=== PATIENT | female | born 1945 | race Caucasian/White ===

== ENCOUNTER 2018-04-18 09:13 | Outpatient (CLI) | payer MEDICARE ==
--- NOTE | 2018-04-18 13:24 | MMO ---
BILATERAL SCREENING MAMMOGRAM: Date: 04/18/18 INDICATION: Annual examination; baseline exam. COMPARISON: None. FINDINGS: Interpretation of this exam was assisted with computer-aided detection. There are scattered fibroglandular elements bilaterally. There are vascular benign-appearing calcifications bilaterally. There is a prominent mass seen within the right breast, 9 o'clock region, anterior depth, measuring 3 .3 cm. There are otherwise benign-appearing scattered densities within the right and left breast. IMPRESSION: BIRADS 0: Incomplete: Need Additional Imaging Evaluation and/or Prior Mammograms for Comparison 3.3 cm mass seen within the right breast 9 o'clock position, anterior depth, requires further evaluat ion. Diagnostic mammographic evaluation and ultrasound evaluation likely necessary for further charac terization. The facility will notify patient of need for additional imaging services. POS: OBI
== END 2018-04-18 09:14 | disposition home or self-care (01) ==
LOC: SCSMAMMO 09:13
PROVIDERS: ATTEND Family Medicine
DX: Z12.31 Encounter for screening mammogram for malignant neoplasm of breast (principal); N63.10 Unspecified lump in the right breast, unspecified quadrant
CPT/HCPCS: 77067

== ENCOUNTER 2018-04-25 09:24 | Outpatient (CLI) | payer MEDICARE | END 2018-04-25 09:25 | disposition home or self-care (01) | LOC: BICMAMMO 09:24 | PROVIDERS: ATTEND Family Medicine | DX: N63.10 Unspecified lump in the right breast, unspecified quadrant (principal); Z80.3 Family history of malignant neoplasm of breast | CPT/HCPCS: 76642; 77065; G0279 ==

== ENCOUNTER → 2018-05-15 | Day surgery (SDC) | payer MEDICARE | LOC: BICULT 12:06 | PROVIDERS: ATTEND Family Medicine | PROC: 0HBT3ZX Excision of Right Breast, Percutaneous Approach, Diagnostic (ICD-10-PCS; principal; 2018-05-15) | DX: D24.1 Benign neoplasm of right breast (principal) | CPT/HCPCS: 19083; 88305; 88341; 88342 ==

== ENCOUNTER 2018-12-21 14:10 | Inpatient (IN) | payer MEDICARE ==
--- NOTE | 2018-12-21 14:17 | PDOC.FPRHP ---
- History of Present Illness Chief Complaint: Anemia History of Present Illness: 73 yo F with PMH of DM2, HTN, and anemia presents from Dr. Bartlett (PCP) clinic as a direct admit for low Hgb on 4.9. She reports it was found on routine bloodwork, and that she has chronic anemia. Patient denies any symptoms , no headache, no weakness or dizziness, no vision changes, no SOB or chest pain. Denies n/v, diarrhea/constipation, blood in stools/urine. She does report urinary urgency and leakage at night time for the past 6 months. She reports she takes aleve occasionally at home for knee osteoarthritis. Reports she has had swelling in her legs for about the past year. She does report a recent episode of sores on the inside of her mouth and her lips about a week ago as well as a "scratchy throat" that is now resolved. - Allergies/Adverse Reactions Allergies Allergy/AdvReac Type Severity Reaction Status Date / Time No Known Allergies Allergy Verified 12/21/18 15:04 - Home Medications Medication Instructions Recorded Confirmed Type Amlodipine [Norvasc] 1 tab PO HS 12/21/18 12/21/18 History Aspirin [Aspir-Low] 1 tab PO DAILY 12/21/18 12/21/18 History Glimepiride [Amaryl] 1 tab PO BID 12/21/18 12/21/18 History Hydrochlorothiazide 1 tab PO DAILY 12/21/18 12/21/18 History Metoprolol Tartrate [Lopressor] 1 tab PO DAILY 12/21/18 12/21/18 History Simvastatin 1 tab PO HS 12/21/18 12/21/18 History metFORMIN [Glucophage] 1 tab PO BID 12/21/18 12/21/18 History - History PMHx: DM2, HTN, anemia, Vit B12 deficiency, Rt breast mass removed- benign PSHx: Rt breast mass surgery, cholecystectomy FHx: denies cardiac; breast cancer in mother at age 77 Social: Denies t/a/d use e - Review of Systems General: denies: fever/chills, weight/appetite/sleep changes Eyes: denies: eye pain, vision changes ENT: denies: nasal congestion, rhinorrhea Respiratory: denies: cough, congestion, shortness of breath Cardiovascular: reports: edema. denies: chest pain, palpitation Gastrointestinal: denies: nausea, vomiting, diarrhea, constipation, abdominal pain, GI bleeding Genitourinary: reports: incontinence. denies: dysuria, polyuria Skin: denies: rashes, lesions Musculoskeletal: reports: swelling, arthritis/arthralgias. denies: pain Neurological: denies: numbness, weakness Psychological: denies: anxiety, depression - Vital signs BP: 187/66 HR: 92 RR: 18 Tmax: 98.5 Pox: 99 % on RA Wt: 77.1 kg - Physical Exam Constitutional: NAD, awake, alert and oriented HEENT: normocephalic and atraumatic, PERRLA, EOMI, conjunctiva clear, grossly normal vision, oropharynx clear, other (MM dry, sclera white) Neck: supple, no LAD, no thyromegaly, no bruits Heart: RRR, normal S1/S2 (systolic murmur present, no radiation to carotids), pulses present, other (2+ edema up to knees bilat) Lungs: CTAB, no respiratory distress, good air movement, no wheezing Abdomen: soft, non-tender, bowel sounds present, no masses/distention Musculoskeletal: normal structure, normal tone, ROM grossly normal Neurological: CN II-XII intact Skin: no rash/lesions, good turgor, capillary refill <2 seconds Heme/Lymphatic: no unusual bruising or bleeding, no purpura Psychiatric: normal mood and affect, good judgment and insight, intact recent and remote memory FMR H&P: A/P - Problem List (1) Acute on chronic anemia Current Visit: Yes Status: Acute Code(s): D64.9 - ANEMIA, UNSPECIFIED (2) DM2 (diabetes mellitus, type 2) Current Visit: Yes Status: Chronic (3) HTN (hypertension) Current Visit: Yes Status: Chronic Code(s): I10 - ESSENTIAL (PRIMARY) HYPERTENSION (4) Vitamin B12 deficiency anemia Current Visit: Yes Status: Chronic Code(s): D51.9 - VITAMIN B12 DEFICIENCY ANEMIA, UNSPECIFIED - Plan Acute on Chronic Anemia -Hgb 4.9, asymptomatic; labwork from clinic shows iron deficiency anemia, hx of B12 deficiency per chart review. TTG pending -transfuse 2 units PRBCs, 40 mg IV lasix after each, recheck H/H post transfusion -Occult blood pending -GI consulted for possible colonoscopy/EGD, Dr. Adamson, appreciate recommendations -Hold home aleve -NPO @ midnight CHF Pt denies, but is on Lasix. Lungs clear on physical Exam, new 2/6 systolic murmur present - BNP elevated at 300 - Echo pending - Strict I/Os, daily weights DM2 - Home medications - recent A1C of 5.4 on 12/19/18 HTN -Home medications Osteoarthritis -hold home aleve Diet: HH, CC, NPO @ midnight DVT ppx: SCDs GI ppx: protonix PCP: Tri FMR H&P: Upper Level - Pertinent history 73F here as a direct admit from Dr. Bartlett's clinic for profound anemia. She endorses being completely asymptomatic. She was surprised at the results of her CBC this week. She denies lightheadedness, vertigo, SOB, THOMPSON, chest pain, claudication, n/v/d. She has a PMH of II, HTN, HLD, and BLE edema. Her diabetes has been well controlled on metformin and glimeperide with a recent A1C of 5.4 on 12/19/18. She denies any hx of CHF, but is on lasix 40mg daily. She denies using any NSAIDS. No history of melena, hematochezia, hematemesis. No recent surgeries or blood loss. She feels as though she is at her normal level of activity. - Pertinent findings 187/66 mmHg 98.5F 92 bpm 18 RR 99% on RA Gen: A&Ox3 CV: RRR; no murmur Pulm: CTA-B Abd: soft; nontender; non distended Ext: 1+ non-pitting edema to knees Lab values from 08/10/2018: WBC: 8.3 H/H: 7.3/25.4 MCV: 66 Plt: 422 Ferritin: 5.44 Iron: 17 TIBC: 516 B12: 455 Folate: 8.9 TSH: 1.52 BUN/Cr: - Plan Date/Time: 12/21/18 1417 IIrwin, have evaluated this patient and agree with findings/plan as outlined by internet network specialist resident. Pertinent changes/additions are listed here. Iron Deficiency anemia: we will have her most recent labwork from this week faxed to the floor. From the records on hand, it appears the patient has a profound iron deficiency, but denies any chronic blood loss. Will order a peripheral smear and set her up for a GI work up, FOBT included. Will need to r/ o celiac disease, atrophic gastritis, and h. pylori. Lab results not consistent with AOCD and she has mild CKD. Thyroid studies are appropriate. Will transfuse two units and start on oral iron.
[2018-12-21 14:51] VITALS: BMI 28.3
[2018-12-21] MEDS ORDERED: Ondansetron ODT 4 MG TAB PO PRN (15:35)
[2018-12-21] MEDS ORDERED: Acetaminophen 325 MG TAB PO PRN (15:35)
[2018-12-21] MEDS ORDERED: Furosemide 20 MG/2 ML VIAL IVP SCH (15:45)
[2018-12-21] MEDS ORDERED: Furosemide 40 MG/4 ML VIAL IVP SCH (15:45)
[2018-12-21] MEDS: Amlodipine 10 MG TAB PO SCH (20:52)
[2018-12-21] MEDS: Simvastatin 20 MG TAB PO SCH (20:53)
[2018-12-21 20:54] LABS: Hemoglobin 5.7 g/dL (12.0-16.0)
[2018-12-21] MEDS: metFORMIN 500 MG TAB PO SCH (20:54)
[2018-12-21] MEDS: Glimepiride 2 MG TAB PO SCH (20:54)
[2018-12-21] MEDS ORDERED: hydrALAZINE 20 MG/ML VIAL SLOW IVP PRN (21:02)
[2018-12-21] MEDS ORDERED: Furosemide 40 MG/4 ML VIAL SLOW IVP SCH (22:00)
--- NOTE | 2018-12-21 22:49 | HP ---
HISTORY OF PRESENT ILLNESS: I have examined the patient. I have discussed the case with Dr. Tello and agree with her history and physical exam. Briefly, Ms. Jimenez is a very pleasant feisty 73-year-old white female patient, who was admitted from an outlying private physician Dr. Bartlett for anemia of 4.6. Evidently, she has been progressively developing anemia slowly since a breast biopsy in January of last year. Iron studies done in August were consistent with iron deficiency anemia with a low ferritin, low MCV. She has been admitted for transfusion and further workup. She has absolutely no complaints. She does not feel weak or dizzy. She has no GI complaints, but states that she does take a pill for "arthritis." She does not recall the name. She denies any melena, coffee-grounds emesis, or hematochezia. PHYSICAL EXAMINATION: VITAL SIGNS: Blood pressure is 180/60. She is afebrile. Her pulse rate is 90, her respirations are 18, her room air oxygen saturation is 99%. GENERAL: She is completely awake, oriented x3. Very pleasant and in absolutely no distress. EAR, NOSE, AND THROAT: No erythema or exudate. NECK: Supple. CARDIAC: Heart rhythm regular. No gallop or murmur noted. LUNGS: Clear. No rales or wheezes. ABDOMEN: Flat, benign, soft. No guarding, rebound, or rigidity. EXTREMITIES: Trace edema. No focal deficits neurologically. LABORATORY DATA: Much lab is still pending, but that available from her private physician was consistent with iron deficiency anemia. ASSESSMENT: 1. Iron deficiency anemia. 2. Type 2 diabetes. PLAN: Admit. Transfuse. Obtain GI workup and proceed. Job ID: [id number]
--- NOTE | 2018-12-22 00:24 | CON ---
DATE OF CONSULTATION: 12/21/2018 REASON FOR CONSULTATION: Iron deficiency anemia. HISTORY OF PRESENT ILLNESS: Suellen Jimenez is a very pleasant 73-year-old woman who was admitted to the hospital today as a direct admit from Dr. Bartlett's office with severe iron deficiency anemia. Ms. Jimenez has never undergone EGD or colonoscopy. She is not on any particular diet that would restrict iron. She has no prior history of gastrointestinal illness. She denies any primary gastrointestinal symptoms such as nausea or vomiting, diarrhea, constipation, abdominal pain, melena, or hematochezia. She denies any overt bleeding from anywhere. There is no epistaxis. No hematemesis. No gross hematuria. No visible blood in the stool. Looking back at her labs, it appears that hemoglobin was 10.8 back in June 2017 with normal MCV at that time, but ever since that time, she has had a slow decline in hemoglobin as well as development of microcytosis. In August 2018, hemoglobin was down to 7.3 with MCV 66. Today, she presents with hemoglobin of 4.4 and MCV is down to 54.4, platelets are normal. BUN is normal. Iron studies from last August showed iron deficiency with ferritin only 5.4, iron 17, TIBC 516, only 3% saturation. Note that vitamin B12 and folic acid levels as well as TSH were normal at that time. The patient herself is actually very minimally symptomatic for such a significant degree of anemia. She denies any shortness of breath. She is getting 2 units of RBCs now. She has no complaints at this time. She did just finish a large dinner with some meat, sweet potatoes, and peas. REVIEW OF SYSTEMS: Full review of systems including constitutional, head, eyes, ears, nose, throat, GI, , cardiovascular, respiratory, musculoskeletal, neurologic systems is negative except as noted in the HPI. PAST MEDICAL HISTORY: 1. Diabetes type 2. 2. Hypertension. 3. Microcytic anemia. 4. Vitamin B12 deficiency, though normal B12 levels in August 2018. 5. Iron deficiency. 6. Right breast mass removed, benign. 7. Cholecystectomy. ALLERGIES: NO KNOWN DRUG ALLERGIES. OUTPATIENT MEDICATIONS: 1. Norvasc. 2. Aspirin. 3. Glimepiride. 4. Hydrochlorothiazide. 5. Metoprolol. 6. Simvastatin. 7. Metformin. FAMILY HISTORY: Her mother had breast cancer. No family history of GI malignancy. SOCIAL HISTORY: No tobacco, alcohol, or drug use. She has good family support. PHYSICAL EXAMINATION: VITAL SIGNS: Temperature 98.5, pulse 92, blood pressure 187/66, and 99% oxygen saturation on room air. GENERAL: A 73-year-old woman sitting up on the edge of the bed comfortably, in no distress. SKIN: She is a bit pale. No jaundice. No rashes are palpable. EYES: No scleral icterus. Extraocular movements intact. ENT: Mucous membranes moist. No oral lesions. LYMPH: No submandibular or supraclavicular lymphadenopathy. Thyroid nontender to palpation. HEART: Regular rate and rhythm. LUNGS: Clear to auscultation bilaterally. ABDOMEN: Bowel sounds present. Soft, nontender to palpation throughout. No masses or organomegaly appreciated. EXTREMITIES: No peripheral edema. VESSELS: Radial pulses 2+ bilaterally NEUROLOGIC: Cranial nerves 2 through 12 intact bilaterally. No focal deficits. LABORATORY STUDIES: Hemoglobin is 4.4, MCV 54.4, WBC 5.1, platelets 321. Sodium 138, potassium 4.0, BUN 19, creatinine 1.19. Hemoglobin A1c only 5.4. LFTs all normal with total bilirubin 0.5, alkaline phosphatase 101, AST 16, ALT 19, and albumin 3.7. BNP is 306.1. TSH 152.9. From August 2018, vitamin B12 and folic acid levels were normal, but ferritin was low at 5.44, iron 17, TIBC 516, only 3% saturation. ASSESSMENT AND PLAN: Iron deficiency anemia, severe. It appears that this iron deficiency has been developing over the past year to year and a half, in the absence of any overt bleeding or primary gastrointestinal symptoms. We discussed the differential for iron deficiency anemia. The most likely cause would be occult gastrointestinal bleeding lesion. This certainly needs further evaluation. We will plan for diagnostic EGD and colonoscopy with plan for duodenal biopsies to rule out celiac disease. She just finished her dinner, so we will not proceed with bowel preparation this evening. Rather, we will have her on a clear liquid diet tomorrow, administer bowel preparation tomorrow evening, and plan for the procedure on Tuesday. The patient understands and is in agreement with the plan. Otherwise, I agree with the plan to transfuse this evening. Thank you for the consultation. Please call anytime with questions or concerns. Job ID: [id number]
[2018-12-22 05:38] LABS: INR-International Normal Ratio 1.1; Prothrombin Time 14.1 SEC (12.0-14.7)
[2018-12-22 06:14] LABS: #Eosinphils 0.1 thou/uL (0.0-0.7); #Lymphocytes 1.7 thou/uL (1.20-3.40); #Monocytes 0.5 thou/uL (0.11-0.59); #Neutrophils 4.1 thou/uL (1.40-6.50); %Basophils 0.7 % (0.0-1.0); %Eosinophils 1.8 % (0.0-10.0); %Lymphocytes 26.2 % (21.0-51.0); %Monocytes 7.3 % (0.0-10.0); Anisocytosis MODERATE=16-30 cells (100X) (0-5/hpf); Elliptocytes MODERATE= 6-15 cells (100X) (0-1/hpf); Hemoglobin 6.8 g/dL (12.0-16.0); Hypochromia MODERATE=16-30 cells (100X) (0-5/hpf); MDiff Complete? YES; Mean Corpuscular HGB CONC 28.6 g/dL (32.0-36.0); Mean Corpuscular Volume 62.7 fL (78.0-98.0); Mean Platelet Volume 5.2 fL (7.4-10.4); Platelet Count 291 thou/uL (130-400); Red Blood Cell (RBC) Count 3.76 mill/uL (4.20-5.40); Tear Drops SLIGHT = 2-5 cells (100X) (0-1/hpf); White Blood Cell (WBC) Count 6.4 thou/uL (4.8-10.8)
--- NOTE | 2018-12-22 06:52 | PDOC.FM ---
- Subjective Subjective: Pt feels well this AM, does not feel differently than yesterday. Reports no CP or SOB. - Objective Vital Signs & Weight: Vital Signs (12 hours) Temp Pulse Pulse Resp BP BP BP 12/22/18 04:00 98.2 F 73 18 162/66 H 12/22/18 00:16 98.7 F 78 78 18 157/70 H 157/70 H 12/21/18 21:51 97.9 F 76 18 177/69 H 12/21/18 21:35 97.8 F 75 18 170/67 H 12/21/18 20:52 86 185/70 H 12/21/18 19:38 98.6 F 86 18 12/21/18 19:35 98.1 F 86 18 185/70 H BP Pulse Ox 12/22/18 04:00 94 L 12/22/18 00:16 96 12/21/18 21:51 95 12/21/18 21:35 97 12/21/18 20:52 12/21/18 19:38 185/70 H 98 12/21/18 19:35 98 Weight Weight 77.111 kg I&O: 12/20/18 12/21/18 12/22/18 06:59 06:59 06:59 Intake Total 1544 Balance 1544 Result Diagrams: 12/22/18 05:21 Phys Exam - Physical Examination Constitutional: NAD Appears less pale than yesterday Neck: no nodes, supple Respiratory: no wheezing, no rales Cardiovascular: RRR 2/6 systolic murmur Gastrointestinal: soft, non-tender 3+ pitting edema to level of knees Neurological: non-focal, moves all 4 limbs Psychiatric: normal affect, A&O x 3 Skin: normal turgor, cap refill <2 seconds Dx/Plan (1) Acute on chronic anemia Code(s): D64.9 - ANEMIA, UNSPECIFIED Status: Acute (2) DM2 (diabetes mellitus, type 2) Status: Chronic (3) HTN (hypertension) Code(s): I10 - ESSENTIAL (PRIMARY) HYPERTENSION Status: Chronic (4) Vitamin B12 deficiency anemia Code(s): D51.9 - VITAMIN B12 DEFICIENCY ANEMIA, UNSPECIFIED Status: Chronic - Plan Plan: Acute on Chronic Anemia -Hgb 4.9, asymptomatic; labwork from clinic shows iron deficiency anemia, hx of B12 deficiency per chart review. TTG pending -transfuse 2 units PRBCs, 40 mg IV lasix after each, recheck H/H post transfusion -Occult blood pending -GI consulted for possible colonoscopy/EGD, Dr. Adamson, appreciate recommendations -Clear liquids, bowel prep this evening -Hold home aleve -Consider iron infusion today CHF Pt denies, but is on Lasix. Lungs clear on physical Exam, new 2/6 systolic murmur present - BNP elevated at 300 - Echo pending, EKG NSR - Strict I/Os, daily weights DM2 - Home medications - recent A1C of 5.4 on 12/19/18 HTN -Home medications Osteoarthritis -hold home aleve Diet: HH, CC, NPO @ midnight DVT ppx: SCDs GI ppx: protonix PCP: Tri
[2018-12-22] MEDS: Hydrochlorothiazide 25 MG TAB PO SCH (08:49)
[2018-12-22] MEDS: Aspirin 81 mg Enteric Coated Tablet PO SCH (08:49)
[2018-12-22] MEDS: Glimepiride 2 MG TAB PO SCH ×2 (08:50→21:20)
[2018-12-22] MEDS: metFORMIN 500 MG TAB PO SCH ×2 (08:50→21:20)
[2018-12-22] MEDS: Metoprolol Tartrate 50 MG TAB PO SCH (08:50)
[2018-12-22] MEDS ORDERED: Prevnar 13-Val Conj/PF 0.5 ML SYRINGE IM ONE (09:00)
[2018-12-22] MEDS ORDERED: GoLYTELY 4,000 ml Bottle PO SCH (09:15)
[2018-12-22 09:48] LABS: Anion Gap 17 mmol/L (10-20); BUN (Urea Nitrogen) 19 mg/dL (9.8-20.1); Calc. Creatinine Clearance 49 mL/min (70-130); Calcium 9.6 mg/dL (7.8-10.44); Carbon Dioxide 23 mmol/L (23-31); Chloride 103 mmol/L (98-107); Estimated GFR-MDRD 42; Glucose 174 mg/dL (83-110); Potassium 3.1 mmol/L (3.5-5.1); Sodium 140 mmol/L (136-145)
--- NOTE | 2018-12-22 09:48 | PRG ---
DATE OF SERVICE: 12/22/2018 SUBJECTIVE: Ms. Jimenez is doing fine. She feels a bit better after blood transfusion. Hemoglobin came up to 6.8 with 2 units transfused yesterday. She has no other complaints. OBJECTIVE: VITAL SIGNS: Temperature 98.3, pulse 94, blood pressure 170/71, and 94% oxygen saturation on room air. GENERAL: No acute distress. HEART: Regular rate and rhythm. LUNGS: Clear to auscultation bilaterally. ABDOMEN: Soft, nontender to palpation. EXTREMITIES: 2+ bilateral lower extremity edema. LABORATORY STUDIES: Hemoglobin up to 6.8, WBC 6.4, platelets 291. INR is 1.1, glucose 80. ASSESSMENT AND PLAN: Iron deficiency anemia, with no overt gastrointestinal bleeding. We will stick with the plan to administer bowel preparation this evening after clear liquid diet today, and perform EGD and colonoscopy tomorrow morning. We will plan to obtain duodenal biopsies during EGD to rule out celiac disease. The patient is wanting to be discharged from the hospital following the procedure. I discussed with her that would really depend upon the findings, and if there were any findings that required continued hospitalization. Job ID: [id number]
[2018-12-22] MEDS ORDERED: HumaLOG 300 UNITS/3 ML VIAL SC PRN (11:34)
[2018-12-22] MEDS ORDERED: Dextrose 5% in Water 1,000 ML IV PRN (11:34)
[2018-12-22] MEDS ORDERED: Dextrose 50% Abboject 50 ML SYRINGE IVP PRN (11:34)
[2018-12-22] MEDS ORDERED: Iron, Sodium Ferric Gluconate 250 MG in Sodium Chloride 0.9% 100 ML IVPB SCH (12:00)
--- NOTE | 2018-12-22 12:02 | PRG ---
DATE OF SERVICE: 12/22/2018 SUBJECTIVE: Ms. Jimenez is sitting in bed, in no distress and she is in her usual cheerful self. Today, she is to undergo EGD and colonoscopy. She will receive an iron transfusion. She has already received a transfusion. Afterward, she can likely be discharged for close followup as an outpatient in an attempt to get her hemoglobin back up to about 13 to 14 and her ferritin to at least 50. Job ID: [id number]
--- NOTE | 2018-12-22 16:15 | EKG ---
Test Reason : Blood Pressure : / mmHG Vent. Rate : 095 BPM Atrial Rate : 095 BPM P-R Int : 180 ms QRS Dur : 084 ms QT Int : 356 ms P-R-T Axes : 060 -14 065 degrees QTc Int : 447 ms Normal sinus rhythm Minimal voltage criteria for LVH, may be normal variant Cannot rule out Anterior infarct , age undetermined Abnormal ECG No previous ECGs available Confirmed by DR. Christiano UGARTE ([id number]) on 12/22/2018 4:15:22 PM Referred By: KARLEE Confirmed By:DR. Christiano UGARTE
[2018-12-22 16:29] LABS: EliA Celiac New Method **** NEW METHOD ****; t-Transglutaminase (tTG) IgA 0.2 EliAU/mL (<7 Negative); t-Transglutaminase (tTG) IgG Less than 0.6 EliAU/mL (<7 Negative)
[2018-12-22] MEDS: Amlodipine 10 MG TAB PO SCH (21:17)
[2018-12-22] MEDS: Simvastatin 20 MG TAB PO SCH (21:19)
--- NOTE | 2018-12-23 06:10 | PDOC.FM ---
- Subjective Subjective: Patient feels well this morning, with no complaints. Patient is wondering how long her procedure will take. States that her bowels have been becoming more clear. - Objective Vital Signs & Weight: Vital Signs (12 hours) Temp Pulse Resp BP BP Pulse Ox 12/23/18 04:54 98.1 F 87 18 161/73 H 94 L 12/23/18 00:40 97.8 F 74 18 159/69 H 95 12/22/18 21:17 89 149/74 H 12/22/18 20:00 96 12/22/18 19:26 98.1 F 89 18 149/74 H 96 Weight Weight 77.111 kg I&O: 12/21/18 12/22/18 12/23/18 06:59 06:59 06:59 Intake Total 3844 2620 Balance 3844 2620 Result Diagrams: 12/23/18 06:01 12/23/18 06:01 Phys Exam - Physical Examination Constitutional: NAD HEENT: PERRLA, moist MMs Respiratory: no wheezing, clear to auscultation bilateral Cardiovascular: RRR, no significant murmur Gastrointestinal: soft, non-tender, no distention, positive bowel sounds 3+ pitting edema BLE Neurological: non-focal, moves all 4 limbs Psychiatric: normal affect Skin: normal turgor, cap refill <2 seconds Dx/Plan (1) Acute on chronic anemia Code(s): D64.9 - ANEMIA, UNSPECIFIED Status: Acute (2) DM2 (diabetes mellitus, type 2) Status: Chronic (3) HTN (hypertension) Code(s): I10 - ESSENTIAL (PRIMARY) HYPERTENSION Status: Chronic (4) Vitamin B12 deficiency anemia Code(s): D51.9 - VITAMIN B12 DEFICIENCY ANEMIA, UNSPECIFIED Status: Chronic - Plan Plan: Acute on Chronic Anemia -Hgb 4.9, asymptomatic; labwork from clinic shows iron deficiency anemia, hx of B12 deficiency per chart review. TTG negative for celiac -transfused 2 units PRBCs -Fe infusion yesterday - H/H improved to 7.0 -Occult blood positive -GI consulted, Dr. Adamson, appreciate recommendations -Clear liquids, bowel prep yesterday, NPO @ midnight -Colonoscopy/EGD today -Hold home aleve Elevated BNP, likely 2/2 demand due to profound anemia Pt denies hx CHF. Pitting Edema in bilat LE. Lungs clear on physical Exam New 2/6 systolic murmur present, possibly flow murmur - BNP elevated at 300, possibly demand ischemia from profound anemia - Echo showed mild mitral and tricuspid regurge, EF 55-60%, E/A reversal suggestive of diastolic dysfunction - EKG NSR - Strict I/Os, daily weights DM2 - Home medications - recent A1C of 5.4 on 12/19/18 HTN -Home medications Osteoarthritis -hold home aleve Hypokalemia - K of 3.0 - Potassium today after procedure, with lunch - May have worsened in part due to bowel prep, will most likely continue to improve with normal diet after procedure Dispo: possible discharge today pending results of procedure Diet: HH, CC post-procedure today DVT ppx: SCDs GI ppx: protonix PCP: Tri Addendum - Attending - Attending Attestation Date/Time: 12/23/18 8832 I personally evaluated the patient and discussed the management with Dr. Tello. I agree with the History, Examination, Assessment and Plan documented above with any addition or exceptions noted below. Patient reports no issues this AM. Reports feeling much better s/p 2units of PRBCs and iron infusion. She is going for EGD and Colonoscopy today. Further mgmt per those results but possible discharge if nothing acute noted.
[2018-12-23 06:42] LABS: Anion Gap 11 mmol/L (10-20); BUN (Urea Nitrogen) 15 mg/dL (9.8-20.1); Calc. Creatinine Clearance 62 mL/min (70-130); Calcium 8.9 mg/dL (7.8-10.44); Carbon Dioxide 27 mmol/L (23-31); Chloride 104 mmol/L (98-107); Estimated GFR-MDRD 55; Glucose 67 mg/dL (83-110); Sodium 139 mmol/L (136-145)
[2018-12-23 06:51] LABS: #Basophils 0.1 thou/uL (0.0-0.2); #Eosinphils 0.2 thou/uL (0.0-0.7); #Monocytes 0.5 thou/uL (0.11-0.59); #Neutrophils 3.8 thou/uL (1.40-6.50); %Basophils 1.3 % (0.0-1.0); %Eosinophils 2.5 % (0.0-10.0); %Lymphocytes 30.3 % (21.0-51.0); %Monocytes 7.3 % (0.0-10.0); %Neutrophils 58.6 % (42.0-75.0); Anisocytosis MODERATE=16-30 cells (100X) (0-5/hpf); Elliptocytes SLIGHT = 2-5 cells (100X) (0-1/hpf); Hypochromia MODERATE=16-30 cells (100X) (0-5/hpf); MDiff Complete? YES; Mean Corpuscular HGB CONC 28.6 g/dL (32.0-36.0); Mean Corpuscular Hemoglobin 17.9 pg (27.0-31.0); Mean Corpuscular Volume 62.3 fL (78.0-98.0); Mean Platelet Volume 5.5 fL (7.4-10.4); Microcytosis MARKED = >30 cells (100X) (0-5/hpf); Platelet Count 307 thou/uL (130-400); Red Blood Cell (RBC) Count 3.92 mill/uL (4.20-5.40); Tear Drops SLIGHT = 2-5 cells (100X) (0-1/hpf); White Blood Cell (WBC) Count 6.4 thou/uL (4.8-10.8)
[2018-12-23] MEDS ORDERED: Fentanyl 100 MCG/2 ML VIAL ONE (07:59)
[2018-12-23] MEDS ORDERED: Potassium Chloride 20 MEQ TAB PO SCH (08:00)
[2018-12-23] MEDS ORDERED: Ondansetron HCl/PF 4 MG/2 ML Vial IVP PRN (08:09)
[2018-12-23] MEDS ORDERED: Promethazine HCl 25 MG/ML VIAL SLOW IVP PRN (08:09)
[2018-12-23] MEDS ORDERED: Promethazine HCl 25 MG/ML VIAL IM PRN (08:09)
--- NOTE | 2018-12-23 09:54 | OP ---
DATE OF PROCEDURE: 12/23/2018 TEAM GUIDE SURGEON: None. PROCEDURES: 1. EGD with biopsies. 2. Colonoscopy with biopsies, submucosal injection, and snare polypectomy. INDICATION: Iron deficiency anemia. MEDICATIONS: See Anesthesia record. FINDINGS: After discussion of the risks, benefits, and alternatives of the procedure, informed consent was obtained and witnessed. Preendoscopic cardiopulmonary examination was satisfactory. Time-out was performed before sedation was achieved. Sedation was achieved with Anesthesia assistance in the endoscopy unit. A Pentax adult upper endoscope was placed into the oropharynx and passed through the cricopharyngeus under direct visualization. The esophageal mucosa appeared normal throughout with a normal-appearing Z-line. The endoscope was advanced into the stomach. Forward and retroflexed views of the entire gastric mucosa were obtained. In the gastric antrum and distal body, there is some mild gastritis with some friability, a few small erosions and some small amount of heme staining. Biopsies were obtained from the gastric antrum and body to rule out H. pylori infection. The endoscope was passed through normal pylorus and into the first and second portions of the duodenum, which appeared normal. Duodenal biopsies were obtained to rule out celiac disease. The upper endoscope was completely withdrawn and the patient was repositioned. Digital rectal exam demonstrated external hemorrhoidal skin tags. A Pentax adult colonoscope was inserted into the anus and passed forward to the cecum in the usual fashion. The cecal base was identified by the appendiceal orifice as well as the ileocecal valve. The terminal ileum was not intubated. The colonoscope was slowly withdrawn in a gradual and circumferential manner with careful examination of the entire colonic mucosa. The quality of the prep was good. In what I estimate to be the proximal transverse colon, at 60 cm from the anal verge, there is a friable mass, this is nonobstructing. It involves about 3/4 of the circumference of the colon. It has a likely malignant appearance. I obtained multiple biopsies from the mass, then I tattooed submucosally just distal to the lesion. In the sigmoid colon, there is a sessile polyp measuring about 1.5 cm in diameter. This was completely removed with hot snare and retrieved for pathology. The remainder of the colonoscopy was normal. The colonoscope was completely withdrawn and the patient allowed to recover. The patient tolerated the procedure well. There were no immediate postprocedure complications. IMPRESSION: 1. Nonobstructing mass in the transverse colon at 60 cm from the anal verge, biopsied, tattooed distal to the lesion. The mass has a likely malignant appearance, and involves 3/4 of the circumference of the colonic lumen. 2. 1.5 cm sigmoid colon polyp, completely removed with hot snare and retrieved for pathology. 3. Mild gastritis, biopsied to rule out Helicobacter pylori. 4. Otherwise normal EGD, with duodenal biopsies obtained. RECOMMENDATIONS: 1. Check CEA level. 2. Surgical consultation. 3. Follow up pathology. 4. CT of the abdomen and pelvis for staging. I. Job ID: [id number]
[2018-12-23] MEDS: metFORMIN 500 MG TAB PO SCH ×2 (10:02→21:18)
[2018-12-23] MEDS: Hydrochlorothiazide 25 MG TAB PO SCH (10:02)
[2018-12-23] MEDS: Metoprolol Tartrate 50 MG TAB PO SCH (10:02)
[2018-12-23] MEDS: Aspirin 81 mg Enteric Coated Tablet PO SCH (10:03)
[2018-12-23] MEDS: Glimepiride 2 MG TAB PO SCH ×2 (10:03→21:17)
[2018-12-23] MEDS ORDERED: ISOVUE-370 76%-LOCM 1 ML ONE (12:53)
[2018-12-23] MEDS ORDERED: PROPOFOL 200 MG/20 ML VIAL ONE (13:57)
[2018-12-23] MEDS ORDERED: Lidocaine 1% PF 5 ML VIAL ONE (13:57)
--- NOTE | 2018-12-23 14:36 | CT ---
CT ABDOMEN AND PELVIS WITH IV CONTRAST: Date: 12/23/18 Multiple axial tomograms obtained through abdomen and pelvis with IV enhancement. INDICATION: Transverse colon mass. CT staging. FINDINGS: Lung bases clear. Images of the liver reveal a 1.7 cm low density lesion in the superior left lobe of the liver along t he margin of the liver. Density is recorded at 16 Hounsfield units. This is an indeterminate lesion. While it could represent a cyst, a metastatic lesion is not excluded. Spleen unremarkable. Pancreas unremarkable. Post cholecystectomy change. Adrenal glands unremarkable. Large cyst posterior right kidney measuring 7.0 cm diameter. Densities are higher than expected, marv ured at 27 Hounsfield units. A 4.4 cm exophytic cyst from the posterior left renal cortex. Numerous o ther low density cystic lesions seen throughout both kidneys which are too numerous to count. A 3.5 c m exophytic cyst extends from the inferior pole of the left kidney and there is suggestion of calcifi cation along its inferior margin. Numerous other cysts are subcentimeter and several range from 1-2 c m size. No hydronephrosis or urinary tract calculus. The urinary bladder is poorly distended, but appears unr emarkable. Small bowel loops normal caliber. Appendix unremarkable. Mild mural thickening at the cecum, which is nonspecific. There is a focal area of luminal narrowing with applecore type appearance in the transverse colon at the hepatic flexure, which would correspond to the known history of colon mass. Aorta normal caliber. No adenopathy identified. Images through the pelvis show that the uterus is unremarkable. There is a 4.0 cm cystic lesion in th e upper right pelvis which appears to represent a right ovarian cyst. No free fluid. There is a super ior end plate deformity involving the L5 vertebra. There is low density involving this vertebral body centrally and to the right of midline, which is nonspecific. Bone scan is suggested given the histor y of malignancy. IMPRESSION: 1. Applecore type lesion in the transverse colon at the hepatic flexure corresponds to known history . 2. There is a focal lesion in the left lobe of the liver which is indeterminate. A metastatic lesion is not excluded. 3. Numerous bilateral renal cystic lesions, some of which are complex as discussed above. Follow-up recommended to confirm stability. 4. 4.0 cm cystic lesion in the upper right pelvis, probably ovarian. 5. Low density area involving the right aspect of the L5 vertebra. Consider further evaluation with bone scan. POS: OBI
[2018-12-23] MEDS: Amlodipine 10 MG TAB PO SCH (21:18)
[2018-12-23] MEDS: Simvastatin 20 MG TAB PO SCH (21:18)
[2018-12-23] MEDS: Neomycin 500 mg Tablet PO SCH ×2 (21:19→23:53)
[2018-12-23] MEDS: Erythromycin Base 250 MG TAB PO SCH ×2 (21:20→23:53)
--- NOTE | 2018-12-24 00:33 | CON ---
DATE OF CONSULTATION: 12/23/2018 CONSULTING PHYSICIAN: Mickey Adamson MD REASON FOR CONSULTATION: Proximal transverse colon mass, suspected colon cancer. HISTORY OF PRESENT ILLNESS: The patient is a very pleasant 73-year-old white female. She has been followed by her primary care physician, Dr. Bartlett, in regard to anemia. She was noted to be anemic in March of 2018 with a hemoglobin of 8.8. This dropped down to 7.3 by August. When she came in for regular screening here on December 19, her hemoglobin was down to 4.7. At that time, he recommended admission to the hospital. She was admitted to the [facility] service and was give a transfusion of 2 units packed red blood cells. Gastroenterology was consulted and Dr. Adamson performed a colonoscopy today revealing a large fungating mass at the proximal transverse colon just distal to the hepatic flexure. Biopsies were obtained and the area was tattooed, but of course, biopsy results are not available yet. The patient's hemoglobin thomas to 7.0 this morning after 2 units of transfusion. She denies any abdominal pain. She has never had a previous colonoscopy. She denies hematochezia or melena. PAST MEDICAL HISTORY: 1. Diabetes. 2. Hypertension. 3. Microcytic anemia. 4. Iron deficiency. 5. Hypercholesterolemia. PAST SURGICAL HISTORY: 1. Right breast biopsy. 2. Cholecystectomy. ALLERGIES: NO KNOWN DRUG ALLERGIES. OUTPATIENT MEDICATIONS: 1. Norvasc. 2. Hydrochlorothiazide. 3. Metoprolol. 4. Glimepiride. 5. Metformin. 6. Simvastatin. 7. Aspirin. PERSONAL AND SOCIAL HISTORY: She is with 3 children. One of her daughters and a sister are present at bedside currently. She does not smoke nor does she drink alcohol. REVIEW OF SYSTEMS: Otherwise unremarkable. FAMILY HISTORY: Noncontributory. PHYSICAL EXAMINATION: VITAL SIGNS: Her temperature is 98.5, pulse is 92, blood pressure 165/64. GENERAL: She is a well-developed, well-nourished, pleasant white female, resting in bed, in no acute distress. She is alert and oriented x3. HEAD, EYES, EARS, NOSE, AND THROAT: Unremarkable. NECK: Supple without mass or tenderness. LUNGS: Clear to auscultation throughout. CARDIAC: Regular rate and rhythm without murmur. ABDOMEN: Soft, nontender, and nondistended with no dominant palpable mass. EXTREMITIES: Unremarkable. LABORATORY DATA: As mentioned, CBC reveals microcytic anemia with an MCV this morning of 62 and a hemoglobin of 7.0, platelet count is normal at 307. Basic metabolic panel reveals hypokalemia with a potassium of 3.0. Her blood sugars ranged between 67 and 325. Her liver function tests at the time of admission were essentially normal. CT scan of her abdomen and pelvis was obtained today. There is a single small lesion in the left lobe of the liver superior aspect near the margin. This is an indeterminate lesion and not definitely metastatic disease. The patient has multiple large cysts associated with her bilateral kidneys. There is suggestion of an ovarian mass in the upper right pelvis. The suspect of malignancy is visualized to the proximal transverse colon. There is no definite lymphadenopathy. ASSESSMENT: The patient is severely anemic and this is certainly related to the lesion that was visualized in the colon. I recommend a laparoscopic extended right hemicolectomy. I discussed the procedure in detail with the patient as well as potential risks. Since she has undergone bowel prep in preparation for her colonoscopy today, I will plan to proceed with this colon surgery tomorrow. She will be given oral prep in addition to her mechanical prep that she has already completed. She understands the operation as well as potential risks and agrees to proceed at this time. Job ID: [id number]
[2018-12-24] MEDS: 1/2 NS w/KCL 20 mEq 1,000 ML IV SCH ×4 (04:15→21:41)
--- NOTE | 2018-12-24 05:39 | PDOC.FM ---
- Subjective Subjective: Pt prepared for surgery this AM. No complaints. States her dry janitor is coming by to see her. - Objective Vital Signs & Weight: Vital Signs (12 hours) Temp Pulse Pulse Resp BP BP Pulse Ox 12/24/18 03:43 97.8 F 88 16 134/64 92 L 12/24/18 01:45 98.1 F 82 18 149/64 H 93 L 12/23/18 22:37 97.9 F 81 18 144/63 H 96 12/23/18 21:55 98.5 F 90 16 165/64 H 95 12/23/18 19:41 98.5 F 84 18 185/69 H 96 12/23/18 19:37 96 12/23/18 18:50 87 F L 87 16 169/68 H 98 12/23/18 18:20 98.7 F 86 16 175/73 H 100 Weight Weight 77.111 kg I&O: 12/22/18 12/23/18 12/24/18 06:59 06:59 06:59 Intake Total 3844 2620 3050 Output Total 2040 Balance 1804 2620 3050 Result Diagrams: 12/23/18 06:01 12/24/18 07:57 Phys Exam - Physical Examination Constitutional: NAD HEENT: PERRLA Respiratory: no wheezing, clear to auscultation bilateral Cardiovascular: RRR 1/6 systolic murmur Gastrointestinal: soft, non-tender, no distention, positive bowel sounds 2+ pitting edema bilat Neurological: non-focal, moves all 4 limbs Psychiatric: normal affect, A&O x 3 Dx/Plan (1) Acute on chronic anemia Code(s): D64.9 - ANEMIA, UNSPECIFIED Status: Acute (2) DM2 (diabetes mellitus, type 2) Status: Chronic (3) HTN (hypertension) Code(s): I10 - ESSENTIAL (PRIMARY) HYPERTENSION Status: Chronic (4) Vitamin B12 deficiency anemia Code(s): D51.9 - VITAMIN B12 DEFICIENCY ANEMIA, UNSPECIFIED Status: Chronic (5) Mass of colon Code(s): K63.9 - DISEASE OF INTESTINE, UNSPECIFIED Status: Acute - Plan Plan: Nonobstructing Mass in Transverse Colon, concern for malignancy -Gen Surgery Dr. Oswald consulted 12/24, appreciate recommendations -Most likely the cause of her severe anemia -Plan for ana rosa-colectomy today -Biopsy results from colonoscopy pending -CT showed: Apple core lesion in hepatic flexure, corresponding to colonoscopy findings. Indeterminate focal left lobe liver lesion. Numerous bilat renal cysts. 4.0 cm cystic lesion Rt upper pelvis, probably ovarian. Low density area Rt aspect L5. - CEA pending Acute on Chronic Anemia -Hgb 4.9, asymptomatic on admission; labwork from clinic shows iron deficiency anemia, hx of B12 deficiency per chart review. TTG negative for celiac -transfused 2 units PRBCs -s/p Fe infusion - H/H improved to 7.0 - GI consulted, Dr. Adamson, appreciate recommendations -Colonoscopy: Transverse colonic non-obstructing mass, malignant appearing. -Biopsies mass pending, biopsies polyp pending -duodenal biopsies pending - EGD: Mild gastritis, biopsies pending to rule out H pylori Elevated BNP, likely 2/2 demand due to profound anemia Pt denies hx CHF. Pitting Edema in bilat LE. Lungs clear on physical Exam New 2/6 systolic murmur present, possibly flow murmur - BNP elevated at 300, possibly demand ischemia from profound anemia - Echo showed mild mitral and tricuspid regurge, EF 55-60%, E/A reversal suggestive of diastolic dysfunction - EKG NSR - Strict I/Os, daily weights DM2, controlled - Home medications - recent A1C of 5.4 on 12/19/18 HTN -Home medications Osteoarthritis -hold home aleve Hypokalemia - K of 3.0 - Potassium today after procedure, with lunch - May have worsened in part due to bowel prep, will most likely continue to improve with normal diet after procedure Dispo: LOS >2 midnights Diet: HH, CC post-procedure today DVT ppx: SCDs GI ppx: protonix PCP: Tri Addendum - Attending - Attending Attestation Date/Time: 12/24/18 4701 I personally evaluated the patient and discussed the management with Dr. Tello. I agree with the History, Examination, Assessment and Plan documented above with any addition or exceptions noted below. Patient in overall good spirits this morning. She was found to have large transverse colon mass. CT does not show obvious metastatic disease. CEA resulted. She is going for hemicolectomy this morning. Will consult Oncology once we have path diagnosis and will consider bone scan to further evaluate the spinal lesion tomorrow or in the coming days. Received more blood overnight so expect her blood counts to be stable.
[2018-12-24] MEDS: Metoprolol Tartrate 50 MG TAB PO SCH (05:41)
[2018-12-24] MEDS ORDERED: Fentanyl 100 MCG/2 ML VIAL ONE (07:08)
[2018-12-24] MEDS ORDERED: Famotidine/PF 20 mg/2ml Vial ONE (07:08)
[2018-12-24] MEDS ORDERED: Bupivacaine/Epinephrine 0.25% 30 ML VIAL ONE (07:40)
[2018-12-24] MEDS ORDERED: Lidocaine 2% PF 5 ML VIAL ONE (07:40)
[2018-12-24] MEDS ORDERED: cefOXitin 2 GM VIAL ONE (07:59)
[2018-12-24] MEDS ORDERED: Sodium Chloride 0.9% 100 ML ONE (08:00)
[2018-12-24] MEDS ORDERED: Midazolam HCl 2 mg/2 ml Vial ONE (08:02)
[2018-12-24] MEDS ORDERED: Ropivacaine 0.2% HCl/PF 40 ML ONE (08:02)
[2018-12-24] MEDS ORDERED: Ropivacaine 0.2% HCl/PF 20 ML ONE (08:06)
[2018-12-24] MEDS ORDERED: Ropivacaine 0.5% HCl/PF (150 MG/30 ML VIAL) ONE (08:06)
[2018-12-24] MEDS ORDERED: Lidocaine 2% 10 ML INJ ONE (08:12)
[2018-12-24 08:27] LABS: Hemoglobin A1c 5.6 % (4.0-6.0)
[2018-12-24 08:39] LABS: Anion Gap 13 mmol/L (10-20); BUN (Urea Nitrogen) 12 mg/dL (9.8-20.1); Calc. Creatinine Clearance 65 mL/min (70-130); Calcium 9.2 mg/dL (7.8-10.44); Carbon Dioxide 25 mmol/L (23-31); Chloride 106 mmol/L (98-107); Estimated GFR-MDRD 58; Glucose 106 mg/dL (83-110); Potassium 3.6 mmol/L (3.5-5.1); Sodium 140 mmol/L (136-145)
[2018-12-24] MEDS: Aspirin 81 mg Enteric Coated Tablet PO SCH (09:41)
[2018-12-24] MEDS: metFORMIN 500 MG TAB PO SCH ×2 (09:41→21:40)
[2018-12-24] MEDS: Glimepiride 2 MG TAB PO SCH ×2 (09:41→21:46)
[2018-12-24] MEDS: Hydrochlorothiazide 25 MG TAB PO SCH (09:41)
[2018-12-24 09:52] LABS: #Eosinphils 0.1 thou/uL (0.0-0.7); #Lymphocytes 1.5 thou/uL (1.20-3.40); #Monocytes 0.7 thou/uL (0.11-0.59); #Neutrophils 7.9 thou/uL (1.40-6.50); %Basophils 0.1 % (0.0-1.0); %Eosinophils 1.2 % (0.0-10.0); %Lymphocytes 14.5 % (21.0-51.0); %Monocytes 6.3 % (0.0-10.0); %Neutrophils 77.9 % (42.0-75.0); Hemoglobin 9.7 g/dL (12.0-16.0); Mean Corpuscular HGB CONC 29.2 g/dL (32.0-36.0); Mean Corpuscular Hemoglobin 20.4 pg (27.0-31.0); Mean Corpuscular Volume 69.9 fL (78.0-98.0); Mean Platelet Volume 5.2 fL (7.4-10.4); Platelet Count 265 thou/uL (130-400); RBC Distribution Width 30.6 % (11.5-14.5); Red Blood Cell (RBC) Count 4.72 mill/uL (4.20-5.40); White Blood Cell (WBC) Count 10.2 thou/uL (4.8-10.8)
[2018-12-24] MEDS ORDERED: Ondansetron HCl/PF 4 MG/2 ML Vial IVP PRN (10:24)
[2018-12-24] MEDS ORDERED: Promethazine HCl 25 MG/ML VIAL SLOW IVP PRN (10:24)
[2018-12-24] MEDS ORDERED: Promethazine HCl 25 MG/ML VIAL IM PRN ×2 (10:24→13:07)
[2018-12-24] MEDS ORDERED: Ondansetron PF 4 MG/2 ML Vial IVP PRN (13:07)
[2018-12-24] MEDS ORDERED: hydrALAZINE 20 MG/ML VIAL SLOW IVP PRN (13:07)
[2018-12-24] MEDS ORDERED: Morphine 4 MG/ML VIAL SLOW IVP PRN ×2 (13:07)
[2018-12-24] MEDS ORDERED: Ketorolac Tromethamine 30 MG/ML VIAL IVP SCH (13:15)
[2018-12-24] MEDS ORDERED: Acetaminophen 1,000 MG in Premix Bag 1 BAG IVPB SCH (13:15)
--- NOTE | 2018-12-24 13:33 | PRG ---
DATE OF SERVICE: 12/24/2018 SUBJECTIVE: Ms. Jimenez just got back from her laparoscopic surgery this morning. I spoke with Dr. Oswald. She had successful removal of her transverse colon mass. He did not see any evidence of metastatic disease. The single left liver lesion appeared to represent a cyst. Ms. Jimenez currently has a bit of generalized abdominal discomfort. No nausea. No other complaints. PHYSICAL EXAMINATION: VITAL SIGNS: Temperature 97.8, pulse 77, blood pressure 148/68, and 94% oxygen saturation on room air. GENERAL: No acute distress. HEART: Regular rate and rhythm. LUNGS: Clear to auscultation bilaterally. ABDOMEN: Surgical incisions look good. EXTREMITIES: No peripheral edema. LABORATORY STUDIES: Hemoglobin 9.7, WBC 10.2, platelets 265. Sodium 140, potassium 3.6, BUN 12, creatinine 0.94, glucose 132. CEA is 6.43. IMAGING STUDIES: Preoperative CT of the abdomen and pelvis demonstrated a 1.7 cm low-density lesion in the superior left lobe of the liver, which was indeterminate. There is a 7 cm posterior right kidney cyst and a 3.5 cm left renal cyst and numerous other subcentimeter cysts. Apple-core lesion in the transverse colon at the hepatic flexure 4 cm ovarian cyst and a low-density area in the right aspect of the L5 vertebra. ASSESSMENT AND PLAN: 1. Transverse colon mass, now status post successful resection with Dr. Oswald earlier today. 2. Elevated CEA, consistent with likely adenocarcinoma of the colon. Now resected. Pathology is pending. 3. Renal cyst. Ms. Jimenez is doing well postoperatively today. Dietary advancement, postoperative care per Dr. Oswald. No clear evidence of metastatic disease, but I note that bone scan is planned per the primary team. No new recommendations from a GI perspective. The patient will need repeat colonoscopy at a one year interval for surveillance. Would recommend oncology consultation if the path indeed returns malignant. GI will sign off at this time, but please call anytime with questions or concerns. Job ID: [id number]
[2018-12-24] MEDS ORDERED: PROPOFOL 200 MG/20 ML VIAL ONE (14:27)
[2018-12-24] MEDS ORDERED: Metoclopramide HCl 10 MG/2 ML VIAL ONE (14:27)
[2018-12-24] MEDS ORDERED: Lidocaine 1% PF 5 ML VIAL ONE (14:27)
[2018-12-24] MEDS ORDERED: Ondansetron PF 4 MG/2 ML Vial ONE (14:27)
[2018-12-24] MEDS ORDERED: Ketorolac Tromethamine 30 MG/ML VIAL ONE (14:27)
[2018-12-24] MEDS ORDERED: Glycopyrrolate 0.2 MG/ML 5 ML SYRINGE ONE (14:27)
[2018-12-24] MEDS ORDERED: ePHEDrine 50 MG/ML VIAL ONE (14:27)
[2018-12-24] MEDS ORDERED: Rocuronium Bromide 10 MG/ML (10ML VIAL) ONE (14:27)
[2018-12-24] MEDS: Acetaminophen 1,000 MG in Premix Bag 1 BAG IVPB SCH (18:42)
[2018-12-24] MEDS: Ketorolac Tromethamine 30 MG/ML VIAL IVP SCH (18:42)
[2018-12-24] MEDS: Amlodipine 10 MG TAB PO SCH (21:37)
[2018-12-24] MEDS: Enoxaparin Sodium 40 MG/0.4 ML SYRINGE SC SCH (21:39)
[2018-12-24] MEDS: Famotidine 20 MG TAB PO SCH (21:39)
[2018-12-24] MEDS: Simvastatin 20 MG TAB PO SCH (21:40)
[2018-12-24] MEDS: Famotidine/PF 20 mg/2ml Vial SLOW IVP SCH (21:40)
[2018-12-25] MEDS: Ketorolac Tromethamine 30 MG/ML VIAL IVP SCH ×5 (01:00→23:08)
[2018-12-25] MEDS: Acetaminophen 1,000 MG in Premix Bag 1 BAG IVPB SCH ×2 (01:00→05:33)
[2018-12-25] MEDS: 1/2 NS w/KCL 20 mEq 1,000 ML IV SCH ×3 (05:30→21:49)
--- NOTE | 2018-12-25 06:03 | PDOC.FM ---
- Subjective Subjective: Pt hungry this AM, states her pain is well controlled. Anxious to hear results of her recent procedures. - Objective Vital Signs & Weight: Vital Signs (12 hours) Temp Pulse Resp BP BP Pulse Ox 12/25/18 00:00 98.3 F 84 20 166/67 H 94 L 12/24/18 21:37 81 172/70 H 12/24/18 20:00 98.5 F 81 18 172/70 H 94 L Weight Weight 77.111 kg I&O: 12/23/18 12/24/18 12/25/18 06:59 06:59 06:59 Intake Total 2620 3875 1331.5 Output Total 700 Balance 2620 3875 631.5 Result Diagrams: 12/25/18 05:44 12/25/18 05:44 Phys Exam - Physical Examination Constitutional: NAD Respiratory: no wheezing, clear to auscultation bilateral Cardiovascular: RRR, no significant murmur Gastrointestinal: soft, positive bowel sounds mildly tender to palpation around incision sites 2+ pitting edema in BLE Neurological: non-focal, moves all 4 limbs Psychiatric: normal affect, A&O x 3 Deviation from normal: anxious Skin: normal turgor, cap refill <2 seconds Dx/Plan (1) Acute on chronic anemia Code(s): D64.9 - ANEMIA, UNSPECIFIED Status: Acute (2) DM2 (diabetes mellitus, type 2) Status: Chronic (3) HTN (hypertension) Code(s): I10 - ESSENTIAL (PRIMARY) HYPERTENSION Status: Chronic (4) Vitamin B12 deficiency anemia Code(s): D51.9 - VITAMIN B12 DEFICIENCY ANEMIA, UNSPECIFIED Status: Chronic (5) Mass of colon Code(s): K63.9 - DISEASE OF INTESTINE, UNSPECIFIED Status: Acute - Plan Plan: Nonobstructing Mass in Transverse Colon, concern for malignancy -Gen Surgery Dr. Oswald consulted 12/24, appreciate recommendations -Hemicolectomy 12/24, no evidence of metastasis -Pathology pending -Biopsy results from colonoscopy pending -CT showed: Apple core lesion in hepatic flexure, corresponding to colonoscopy findings. Indeterminate focal left lobe liver lesion. Numerous bilat renal cysts. 4.0 cm cystic lesion Rt upper pelvis, probably ovarian. Low density area Rt aspect L5. - CEA 6 Acute on Chronic Anemia -Hgb 4.9, asymptomatic on admission; labwork from clinic shows iron deficiency anemia, hx of B12 deficiency per chart review. TTG negative for celiac -transfused 4 units PRBCs -s/p Fe infusion - H/H improved to 9.2 - GI consulted, Dr. Adamson, appreciate recommendations -Colonoscopy: Transverse colonic non-obstructing mass, malignant appearing, as above -Biopsies mass pending, biopsies polyp pending -duodenal biopsies pending - EGD: Mild gastritis, biopsies pending to rule out H pylori Elevated BNP, likely 2/2 demand due to profound anemia Pt denies hx CHF. Pitting Edema in bilat LE. Lungs clear on physical Exam New 2/6 systolic murmur present, possibly flow murmur, now resolved - BNP elevated at 300, possibly demand ischemia from profound anemia - Echo showed mild mitral and tricuspid regurge, EF 55-60%, E/A reversal suggestive of diastolic dysfunction - EKG NSR - Strict I/Os, daily weights DM2, controlled - Home medications - recent A1C of 5.4 on 12/19/18 HTN -Home medications Osteoarthritis -hold home aleve Hypokalemia, resolved - K of 3.0 -> 3.6 - Likely 2/2 to bowel prep Dispo: LOS >2 midnights Diet: per gen surge recs DVT ppx: SCDs GI ppx: protonix PCP: Tri Addendum - Attending - Attending Attestation Date/Time: 12/25/18 1120 I personally evaluated the patient and discussed the management with Dr. Tello. I agree with the History, Examination, Assessment and Plan documented above with any addition or exceptions noted below. Patient doing remarkably well this morning. Tolerating clears well and having flatus. ADAT per Surgery recs. Pathology pending. Will obtain bone scan today to evaluate her spinal lesion though I do not have suspicion for metastatic disease. Will consult Oncology once pathology results. Labwork stable at this time.
[2018-12-25 06:57] LABS: Hemoglobin 9.2 g/dL (12.0-16.0); Mean Corpuscular HGB CONC 29.8 g/dL (32.0-36.0); Mean Corpuscular Hemoglobin 21.2 pg (27.0-31.0); Mean Platelet Volume 5.4 fL (7.4-10.4); Platelet Count 227 thou/uL (130-400); RBC Distribution Width 30.9 % (11.5-14.5); Red Blood Cell (RBC) Count 4.35 mill/uL (4.20-5.40); White Blood Cell (WBC) Count 13.9 thou/uL (4.8-10.8)
[2018-12-25 06:58] LABS: #Eosinphils 0.1 thou/uL (0.0-0.7); #Lymphocytes 1.6 thou/uL (1.20-3.40); #Monocytes 0.5 thou/uL (0.11-0.59); #Neutrophils 11.7 thou/uL (1.40-6.50); %Eosinophils 0.8 % (0.0-10.0); %Lymphocytes 11.4 % (21.0-51.0); %Monocytes 3.7 % (0.0-10.0); %Neutrophils 84.2 % (42.0-75.0)
[2018-12-25 07:01] LABS: Anion Gap 10 mmol/L (10-20); BUN (Urea Nitrogen) 8 mg/dL (9.8-20.1); Calc. Creatinine Clearance 73 mL/min (70-130); Calcium 8.3 mg/dL (7.8-10.44); Carbon Dioxide 26 mmol/L (23-31); Chloride 108 mmol/L (98-107); Estimated GFR-MDRD 67; Glucose 68 mg/dL (83-110); Potassium 3.7 mmol/L (3.5-5.1); Sodium 140 mmol/L (136-145)
[2018-12-25] MEDS: Aspirin 81 mg Enteric Coated Tablet PO SCH (08:39)
[2018-12-25] MEDS: metFORMIN 500 MG TAB PO SCH ×2 (08:39→21:42)
[2018-12-25] MEDS: Hydrochlorothiazide 25 MG TAB PO SCH (08:40)
[2018-12-25] MEDS: Famotidine 20 MG TAB PO SCH ×2 (08:41→21:42)
[2018-12-25] MEDS: Metoprolol Tartrate 50 MG TAB PO SCH (08:41)
[2018-12-25] MEDS: Glimepiride 2 MG TAB PO SCH ×2 (08:41→21:47)
[2018-12-25] MEDS: Famotidine/PF 20 mg/2ml Vial SLOW IVP SCH ×2 (08:42→21:43)
[2018-12-25 09:08] LABS: Anisocytosis MODERATE=16-30 cells (100X) (0-5/hpf); Band 7 % (5-11); Elliptocytes SLIGHT = 2-5 cells (100X) (0-1/hpf); Hypochromia MODERATE=16-30 cells (100X) (0-5/hpf); Lymphocytes 11 % (21-51); MDiff Complete? YES; Microcytosis MODERATE=15-30 cells (100X) (0-5/hpf); Monocytes 4 % (0-10); Neutrophil 78 % (42-75); Ovalocytes SLIGHT = 2-5 cells (100X) (0-1/hpf); Platelet Morphology Comment Appears Adequate; Polychromasia SLIGHT = 2-3 cells (100X) (0-2/hpf); Tear Drops SLIGHT = 2-5 cells (100X) (0-1/hpf)
--- NOTE | 2018-12-25 15:50 | PRG ---
DATE OF SERVICE: 12/25/2018 SUBJECTIVE: Ms. Jimenez is postoperative day #1 following laparoscopic extended right hemicolectomy. She has no complaints today. She is tolerating her liquids uneventfully and is ambulating. She still has a Coffey catheter, but this will be removed today. OBJECTIVE: VITAL SIGNS: She is afebrile. Pulse is 81, blood pressure 159/80. LUNGS: Clear to auscultation. ABDOMEN: Soft. She has no focal tenderness. Her incisions are all healing nicely. Bowel sounds are present and normoactive. LABORATORY DATA: Her white blood cell count is 13.9, hemoglobin is 9.2, platelet count 227. Basic metabolic panel reveals no significant electrolyte abnormalities. Her kidney function is intact. ASSESSMENT: She is doing quite well following laparoscopic right hemicolectomy for a proximal transverse colon cancer. Final pathology is pending. There was certainly no evidence of metastatic disease. The lesion on the left lobe of the liver was identified and was found to be a cyst. Today, she will continue clear liquids and ambulate and her Coffey catheter be removed. I will advance her to full liquids tomorrow and anticipate discharge then. Job ID: [id number]
--- NOTE | 2018-12-25 16:25 | NM ---
WHOLE BODY BONE SCAN: Date: 12/25/18 HISTORY: Possible L5 lesion. Colon mass. COMPARISON: None. CORRELATION: CT abdomen and pelvis dated 12/13/18. TECHNIQUE: The patient was administered 31.90 mCi of MDP intravenously. Delayed whole body imaging, as well as i maging of the lumbosacral region is performed. FINDINGS: Homogeneous distribution of the radiotracer. Uptake in both shoulders and knees, likely due to degene rative change. There is no abnormal FDG localization in the region of the right aspect of the L5 vert ebral body. Mild uptake along the left aspect of the L5-S1 disc space likely due to degenerative russo ge. IMPRESSION: No significant evidence of osseous metastasis at L5. POS: OLENA
[2018-12-25] MEDS: Amlodipine 10 MG TAB PO SCH (21:42)
[2018-12-25] MEDS: Enoxaparin Sodium 40 MG/0.4 ML SYRINGE SC SCH (21:42)
[2018-12-25] MEDS: Simvastatin 20 MG TAB PO SCH (21:43)
[2018-12-26] MEDS: 1/2 NS w/KCL 20 mEq 1,000 ML IV SCH ×2 (04:10→10:37)
[2018-12-26] MEDS: Ketorolac Tromethamine 30 MG/ML VIAL IVP SCH ×2 (05:44→10:37)
--- NOTE | 2018-12-26 06:45 | PDOC.FM ---
- Subjective Subjective: NAEO. Patient is cheerful this morning, tolerated her clear liquid diet yesterday well. She wants to continue to advance her diet today. Her abdominal pain is well controlled. - Objective Vital Signs & Weight: Vital Signs (12 hours) Temp Pulse Resp BP BP Pulse Ox 12/26/18 04:35 97.7 F 78 18 151/63 H 95 12/26/18 00:47 98.2 F 77 18 149/63 H 98 12/25/18 21:42 76 167/70 H 12/25/18 20:24 98.0 F 76 18 167/70 H 98 12/25/18 20:00 98 Weight Weight 77.111 kg I&O: 12/24/18 12/25/18 12/26/18 06:59 06:59 06:59 Intake Total 3875 3311.5 1630 Output Total 1300 1100 Balance 3875 2011.5 530 Result Diagrams: 12/26/18 06:15 12/26/18 06:15 Phys Exam - Physical Examination Constitutional: NAD Neck: no nodes, supple Respiratory: no wheezing, clear to auscultation bilateral Cardiovascular: RRR, no significant murmur Gastrointestinal: soft, non-tender, no distention, positive bowel sounds 1+ pitting edema Neurological: non-focal, moves all 4 limbs Psychiatric: normal affect, A&O x 3 Skin: normal turgor, cap refill <2 seconds Dx/Plan (1) Acute on chronic anemia Code(s): D64.9 - ANEMIA, UNSPECIFIED Status: Acute (2) DM2 (diabetes mellitus, type 2) Status: Chronic (3) HTN (hypertension) Code(s): I10 - ESSENTIAL (PRIMARY) HYPERTENSION Status: Chronic (4) Vitamin B12 deficiency anemia Code(s): D51.9 - VITAMIN B12 DEFICIENCY ANEMIA, UNSPECIFIED Status: Chronic (5) Mass of colon Code(s): K63.9 - DISEASE OF INTESTINE, UNSPECIFIED Status: Acute - Plan Plan: Nonobstructing Mass in Transverse Colon, concern for malignancy POD #2 Rt Hemicolectomy - Gen Surgery Dr. Oswald consulted 12/24, appreciate recommendations -Hemicolectomy 12/24, no evidence of metastasis -Pathology pending -Advance to full liquids today - Biopsy results from colonoscopy pending - CT showed: Apple core lesion in hepatic flexure, corresponding to colonoscopy findings. Indeterminate focal left lobe liver lesion. Numerous bilat renal cysts. 4.0 cm cystic lesion Rt upper pelvis, probably ovarian. Low density area Rt aspect L5. - CEA 6 - Bone scan Negative 12/25 - Oncology consult, Dr. Calix 12/26, appreciate recommendations Acute on Chronic Anemia -Hgb 4.9, asymptomatic on admission; labwork from clinic shows iron deficiency anemia, hx of B12 deficiency per chart review. TTG negative for celiac -transfused 4 units PRBCs -s/p Fe infusion - H/H improved to 9.2 - GI consulted, Dr. Adamson, appreciate recommendations -Colonoscopy: Transverse colonic non-obstructing mass, malignant appearing, as above -Biopsies mass pending, biopsies polyp pending -duodenal biopsies pending - EGD: Mild gastritis, biopsies pending to rule out H pylori Elevated BNP, likely 2/2 demand due to profound anemia Pt denies hx CHF. Pitting Edema in bilat LE. Lungs clear on physical Exam New 2/6 systolic murmur present, possibly flow murmur, now resolved - BNP elevated at 300, possibly demand ischemia from profound anemia - Echo showed mild mitral and tricuspid regurge, EF 55-60%, E/A reversal suggestive of diastolic dysfunction - EKG NSR - Strict I/Os, daily weights DM2, controlled - Home medications - recent A1C of 5.4 on 12/19/18 HTN -Home medications Osteoarthritis -hold home aleve Hypokalemia, resolved - K of 3.0 -> 3.6 - Likely 2/2 to bowel prep Dispo: most likely home today, pending clinical picture changes Diet: ADAT per gen surgery recs DVT ppx: SCDs GI ppx: protonix PCP: Tri Addendum - Attending - Attending Attestation Date/Time: 12/26/18 1102 I personally evaluated the patient and discussed the management with Dr. Tello. I agree with the History, Examination, Assessment and Plan documented above with any addition or exceptions noted below. Patient doing extremely well POD2 from partial colectomy. Pathology pending. Diet advancement going well. If surgery clears for discharge, she will be discharged later today and she plans to follow up with Gen Surg and Oncology in the outpatient setting.
[2018-12-26 07:07] LABS: #Eosinphils 0.1 thou/uL (0.0-0.7); #Monocytes 0.3 thou/uL (0.11-0.59); #Neutrophils 6.8 thou/uL (1.40-6.50); %Eosinophils 1.6 % (0.0-10.0); %Lymphocytes 11.8 % (21.0-51.0); %Neutrophils 82.6 % (42.0-75.0); Hemoglobin 9.2 g/dL (12.0-16.0); Mean Corpuscular HGB CONC 28.8 g/dL (32.0-36.0); Mean Corpuscular Hemoglobin 20.7 pg (27.0-31.0); Mean Corpuscular Volume 71.8 fL (78.0-98.0); Mean Platelet Volume 5.4 fL (7.4-10.4); Platelet Count 215 thou/uL (130-400); RBC Distribution Width 31.3 % (11.5-14.5); Red Blood Cell (RBC) Count 4.45 mill/uL (4.20-5.40); White Blood Cell (WBC) Count 8.3 thou/uL (4.8-10.8)
[2018-12-26 07:20] LABS: Anion Gap 13 mmol/L (10-20); BUN (Urea Nitrogen) 10 mg/dL (9.8-20.1); Calc. Creatinine Clearance 65 mL/min (70-130); Calcium 8.9 mg/dL (7.8-10.44); Carbon Dioxide 23 mmol/L (23-31); Chloride 108 mmol/L (98-107); Estimated GFR-MDRD 58; Glucose 68 mg/dL (83-110); Potassium 3.5 mmol/L (3.5-5.1); Sodium 140 mmol/L (136-145)
[2018-12-26 08:24] LABS: Hypochromia MODERATE=16-30 cells (100X) (0-5/hpf); MDiff Complete? YES; Microcytosis MODERATE=15-30 cells (100X) (0-5/hpf); Platelet Morphology Comment Appears Adequate; Polychromasia SLIGHT = 2-3 cells (100X) (0-2/hpf)
[2018-12-26] MEDS: Famotidine 20 MG TAB PO SCH (08:29)
[2018-12-26] MEDS: Hydrochlorothiazide 25 MG TAB PO SCH (08:29)
[2018-12-26] MEDS: Aspirin 81 mg Enteric Coated Tablet PO SCH (08:29)
[2018-12-26] MEDS: metFORMIN 500 MG TAB PO SCH ×2 (08:29→08:31)
[2018-12-26] MEDS: Famotidine/PF 20 mg/2ml Vial SLOW IVP SCH (08:30)
[2018-12-26] MEDS: Glimepiride 2 MG TAB PO SCH (08:31)
[2018-12-26 11:34] VITALS: BP 148/89; TEMP 97.9
--- NOTE | 2018-12-27 04:02 | DIS ---
DATE OF ADMISSION: 12/22/2018 DATE OF DISCHARGE: 12/26/2018 RESIDENT: Chanel Tello MD ADMITTING ATTENDING: Prudencio Blanc MD DISCHARGE ATTENDING: Giorgi Amezcua MD CONSULTS: 1. Gastroenterology, Dr. Adamson, 12/21/2018. 2. General Surgery, Dr. Oswald, 12/23/2018. PROCEDURES: 1. Echocardiogram on 12/22/2018. Ejection fraction visually estimated at 55% to 60%. Normal-sized left atrium. Left ventricle size is normal. E/A flow reversal noted. Suggestive of diastolic dysfunction. Mild mitral regurgitation is present. Mild tricuspid regurgitation. 2. Abdomen and pelvis CT 12/23/2018, impression: a. Apple-core lesion in the transverse colon at the hepatic flexure corresponds to known history. b. Focal lesion in the left lobe of the liver, which is indeterminate. Metastatic lesion cannot be excluded. c. Numerous bilateral renal cystic lesions, some of which are complex. Follow up recommended to confirm stability. d. 4 cm cystic lesion in the upper right pelvis, probably ovarian. e. Low-density area involving the right aspect of the L5 vertebra. Consider further evaluation of bone scan. 3. Bone scan 12/25/2018, impression, no significant evidence of osseous metastasis at L5. Homogeneous distribution of the radiotracer. Uptake in both shoulders and knees, likely due to degenerative change. 4. EGD and colonoscopy on 12/23/[address] Adamson. Impression: a. Nonobstructing mass in the transverse colon at 60 cm from the anal verge, biopsied, tattooed, distal to lesion. Mass is likely malignant, and involves 3/ 4 of the circumference of the colonic lumen. b. 1.5 cm sigmoid colon polyp, completely removed with hot snare and retrieved for pathology. c. Mild gastritis, biopsied to rule out Helicobacter pylori. d. Otherwise normal EGD with duodenal biopsies obtained. 5. Right hemicolectomy on 12/[address] Oswald. PRIMARY DIAGNOSES: 1. Nonobstructing mass in the transverse colon, concerned for malignancy, status post op date. 2. Right hemicolectomy. 3. Acute on chronic anemia. SECONDARY DIAGNOSES: 1. Elevated BNP, likely secondary to demand ischemia due to profound anemia. 2. Diabetes mellitus type 2, controlled. 3. Hypertension. 4. Osteoarthritis. 5. Hypokalemia, resolved. DISCHARGE MEDICATIONS: 1. Amlodipine 10 mg p.o. at bedtime. 2. Aspirin 81 mg p.o. daily. 3. Ferrous sulfate 325 mg p.o. b.i.d. 4. Glimepiride 2 mg p.o. b.i.d. 5. Hydrochlorothiazide 25 mg p.o. daily. 6. Metformin 500 mg p.o. b.i.d. 7. Metoprolol succinate 50 mg p.o. daily. 8. Simvastatin 10 mg p.o. at bedtime. DISCONTINUED MEDICATIONS: Metoprolol tartrate 50 mg p.o. daily. HISTORY OF PRESENT ILLNESS/HOSPITAL COURSE: This is a 73-year-old female with past medical history of diabetes mellitus type 2, hypertension, anemia, who presented as a direct admit from Dr. Bartlett, her PCP, for low hemoglobin of 4.9. She reports this was found on routine blood work, but she has had a chronic anemia. The patient denies any symptoms, no headache, no weakness or dizziness, no vision changes, no shortness of breath or chest pain. Denies nausea, vomiting, diarrhea, constipation, or blood in stools or urine. She does report urinary urgency and leakage at night for the past 6 months. She reports taking Aleve occasionally at home for knee osteoarthritis. She has had swelling in the leg throughout the past few years. She does report a recent episode of swelling in the inside of the bilateral lips about 3 weeks ago that has resolved as well as a scratchy throat that resolved. The patient was given 4 units of PRBCs. TTG was negative for celiac. The patient was given iron infusions for her anemia. EGD and colonoscopy were done by Dr. Adamson. Colonoscopy showed a transverse colonic nonobstructing mass that was malignant in appearance. Biopsies were taken of the mass, as well as the duodenum to rule out celiac disease. The patient also had EGD that showed mild gastritis and biopsies were done to rule out H pylori. The biopsies are still pending. Dr. Oswald of General Surgery was consulted and performed a hemicolectomy on 12/24. He found no evidence of metastasis during the surgery. However, the mass was sent for pathology and that pathology is pending. The patient tolerated the procedure well and recovered. The patient's pain is well controlled on discharge and she is tolerating p.o. intake. Bone scan was done on 12/25 that showed no evidence of metastasis to the bones. On presentation, the patient had elevated BNP likely secondary to demand ischemia due to her profound anemia. The patient has a new 2/6 systolic murmur that resolved after her 4 units of PRBCs. An echo was done, which showed mild mitral and tricuspid regurgitation, ejection fraction of 55% to 60%, E/A reversal suggestive of diastolic dysfunction. EKG showed normal sinus rhythm. Diabetes mellitus. The patient had recent A1c of 5.4 on 12/19/2018. Her diabetes is well controlled. She was continued on her home medication regimen. Hypokalemia. The patient had hypokalemia of 3.0, likely secondary to her bowel prep. It improved to 3.6 after oral repletion, as well as resuming a normal diet. DISPOSITION: Stable. DISCHARGE INSTRUCTIONS: 1. Location: Home. 2. Diet: Heart healthy, low-sodium diet. 3. Activity: As tolerated. 4. Followup: Follow up with Dr. Bartlett within 1 week. Follow up with Dr. Oswald in 14 days. Job ID: [id number] [facility]
--- NOTE | 2018-12-27 12:56 | OP ---
DATE OF PROCEDURE: 12/24/2018 PREOPERATIVE DIAGNOSIS: Proximal transverse colon cancer. POSTOPERATIVE DIAGNOSIS: Proximal transverse colon cancer. PROCEDURE PERFORMED: Laparoscopic hand-assisted extended right hemicolectomy. ANESTHESIA: General endotracheal. INDICATIONS: The patient is a 73-year-old white female. She presented to the hospital with severe anemia. She had never undergone prior colonoscopy. Colonoscopy during this hospitalization per Dr. Adamson revealed an obvious malignancy in the proximal transverse colon. This was tattooed. She was taken to the operating at this time following an appropriate bowel prep to proceed with a laparoscopic extended right hemicolectomy. DESCRIPTION OF PROCEDURE: Informed consent was obtained. The patient was taken to the operating room, where general endotracheal anesthesia was obtained with the patient in supine position. Abdomen was prepped with ChloraPrep and draped in sterile fashion. Local anesthetic was infiltrated using 0.25% Marcaine with epinephrine. A 5-mm left upper quadrant incision was created and a Veress needle was passed through this incision into the peritoneal cavity and pneumoperitoneum established using carbon dioxide up to pressure of 15 mmHg. A 5-mm trocar port was passed through this same incision. Laparoscopic camera was passed through this port. Under direct vision, a second 5-mm port was placed in the left lower abdomen. Attention was turned to the right upper quadrant. The omentum was reflected above the transverse colon and this revealed an obvious tattoo at the proximal transverse colon in the appropriate location. An appropriate site was selected for the colon extraction in the right upper quadrant. An 8-cm oblique incision was created and muscle-splitting technique used to gain access into the abdominal cavity. The Jorge wound retractor was passed through this along with the GelPort. Attention was turned first to the cecum. There were some adhesions inferiorly that involved the distal small bowel, appendix, and cecum. These were all carefully taken down using the LigaSure device. I was able to completely mobilize the distal small bowel and cecum. I then elevated the cecum, which allowed identification of the ileocolic vessels. Just inferior to these, an incision was made in the mesentery and retroperitoneal dissection was carried through the mesentery laterally towards the right lateral abdominal wall. The duodenum was identified and swept posteriorly. I then carefully identified, dissected, and divided the ileocolic vessels using the LigaSure device. The mesenteric dissection was continued up to the selected segment of the transverse colon. This was approximated in the mid transverse colon. I then turned my attention to the lateral aspect of the right colon. The white line of Toldt was incised and the colon was mobilized medially to the plane of the retroperitoneal dissection. The hepatic flexure was mobilized in a similar fashion. The patient had, had prior cholecystectomy and the colon was mobilized away from the liver and the gallbladder fossa. At this point, the colon was delivered externally through the Jorge wound retractor. The minimal remainder of the mesenteric dissection was completed with LigaSure, obtaining wide mesenteric dissection. I selected sites for the anastomosis in the distal small bowel and the mid transverse colon. A 3-0 silk stay suture was placed at these locations. The abdominal wall was toweled off and segregated instruments were utilized. A double-stapled anastomosis was created between the distal small bowel in the mid transverse colon using a single fire of the JANETTE-75 stapler. The specimen was passed off the field. The anastomosis was buttressed with multiple interrupted sutures of 3-0 silk. The mesenteric defect, which was quite large, was not closed. The anastomosis was widely patent. The colon was then dropped back down into the abdominal cavity. As soon as the bowel was closed, the segregated instruments had been passed off the field and gloves were changed. The abdominal cavity was inspected laparoscopically and irrigated. There was no evidence of any blood loss in any location. All ports and instruments were removed under direct vision. Pneumoperitoneum was carefully evacuated. All ports and instruments were passed off the field. The abdominal wall was cleansed with saline. The closing tray was utilized from this point on. Gowns and gloves were changed. Sterile towels were placed around the abdominal wall. The fascia was closed in 2 layers using a running suture of #1 PDS. The wound was irrigated with about 2 L of saline as were the other two incision sites. The remainder of the incision was closed in layers with 3-0 and 4-0 Monocryl. Dermabond was placed externally on each incision. There were no complications. The patient tolerated the procedure well and was taken to recovery room in stable condition. Job ID: [id number]
== END 2018-12-26 11:42 | disposition home or self-care (01) | DRG 330 ==
LOC: T4-A 14:10 → OBSVTOIN 12-22 14:15 → SURG B 12-24 12:43
PROVIDERS: ADMIT Family Medicine; ATTEND Family Medicine
PROC: 30233N1 Transfusion of Nonautologous Red Blood Cells into Peripheral Vein, Percutaneous Approach (ICD-10-PCS; 2018-12-21)
PROC: 0DB98ZX Excision of Duodenum, Via Natural or Artificial Opening Endoscopic, Diagnostic (ICD-10-PCS; 2018-12-23)
PROC: 0DB78ZX Excision of Stomach, Pylorus, Via Natural or Artificial Opening Endoscopic, Diagnostic (ICD-10-PCS; 2018-12-23)
PROC: 0DBL8ZX Excision of Transverse Colon, Via Natural or Artificial Opening Endoscopic, Diagnostic (ICD-10-PCS; 2018-12-23)
PROC: 0DBN8ZX Excision of Sigmoid Colon, Via Natural or Artificial Opening Endoscopic, Diagnostic (ICD-10-PCS; 2018-12-23)
PROC: 0DTF4ZZ Resection of Right Large Intestine, Percutaneous Endoscopic Approach (ICD-10-PCS; principal; 2018-12-24)
DX: C18.4 Malignant neoplasm of transverse colon (principal); I24.8 Other forms of acute ischemic heart disease; D50.9 Iron deficiency anemia, unspecified; E11.9 Type 2 diabetes mellitus without complications; K29.70 Gastritis, unspecified, without bleeding; K64.4 Residual hemorrhoidal skin tags; M19.90 Unspecified osteoarthritis, unspecified site; D51.9 Vitamin B12 deficiency anemia, unspecified; K63.5 Polyp of colon; E87.6 Hypokalemia; I10 Essential (primary) hypertension; E78.5 Hyperlipidemia, unspecified; Z79.82 Long term (current) use of aspirin; Z79.84 Long term (current) use of oral hypoglycemic drugs; Z90.49 Acquired absence of other specified parts of digestive tract; Z80.3 Family history of malignant neoplasm of breast
CPT/HCPCS: 36415; 36416; 36430; 74177; 78306; 80048; 80061; 80076; 82274; 82378; 83036; 83516; 83880; 84443; 85014; 85018; 85025; 85060; 85610; 85730; 86850; 86900; 86901; 88305; 88309; 88312; 88313; 88341; 88342; 90471; 90662; 93005; 93010; 93306; A9503; G0008; J0131; J0694; J1650; J1885; J1940; J2001; J2250; J2405; J2704; J2765; J2795; J2916; J3010; J3480; J3490; J7050; P9016; Q9966; S0028

== ENCOUNTER 2020-08-26 08:23 | Outpatient (CLI) | payer MEDICARE ==
--- NOTE | 2020-08-26 09:35 | MMO ---
Bilateral MAMMO Bilat Screen [facility]. CLINICAL HISTORY: Patient is 75 years old and is seen for screening. The patient has the following family history of breast cancer: mother, malignant (generic). The patient has no personal history of cancer. VIEWS: The views performed were: bilateral craniocaudal with tomosynthesis and bilateral mediolateral oblique with tomosynthesis. FILMS COMPARED: The present examination has been compared to prior imaging studies performed at [facility] on 04/25/2018, and at [facility] on 04/18/2018. This study has been interpreted with the assistance of computer-aided detection. MAMMOGRAM FINDINGS: There are scattered fibroglandular densities. Finding 1: There is a stable mass with associated biopsy clip seen in the sub-areolar region of the right breast. Finding 2: There are stable benign appearing calcifications seen in both breasts. There are also vascular calcifications. There are no suspicious masses, suspicious calcifications, or new areas of architectural distortion. IMPRESSION: THERE IS NO MAMMOGRAPHIC EVIDENCE OF MALIGNANCY. A ROUTINE FOLLOW-UP MAMMOGRAM IN 1 YEAR IS RECOMMENDED. THE RESULTS OF THIS EXAM WERE SENT TO THE PATIENT. ACR BI-RADS Category 2 - Benign finding MAMMOGRAPHY NOTE: 1. A negative mammogram report should not delay a biopsy if a dominant of clinically suspicious mass is present. 2. Approximately 10% to 15% of breast cancers are not detected by mammography. 3. Adenosis and dense breasts may obscure an underlying neoplasm. Reported by: ESTHER MORGAN MD Electonically Signed: [id number]
== END 2020-08-26 08:24 | disposition home or self-care (01) ==
LOC: BICMAMMO 08:23
PROVIDERS: ATTEND Family Medicine
DX: Z12.31 Encounter for screening mammogram for malignant neoplasm of breast (principal); Z80.3 Family history of malignant neoplasm of breast
CPT/HCPCS: 77063; 77067